=== PATIENT | male | born 1975 | race Caucasian/White ===

== ENCOUNTER → 2020-10-21 14:30 | Outpatient (CLI) | payer OTHER, SELFPAY ==
[2020-10-21] MEDS: COVID-19 VACC, Ad26(JANSSEN)/PF 0.5 ML IM (14:36)
== END ==
PROVIDERS: Visit Provider Internal Medicine
DX: Z23 Encounter for immunization (principal)
CPT/HCPCS: 0031A; 91303

== ENCOUNTER → 2021-02-07 09:49 | Outpatient (CLI) | payer OTHER, SELFPAY ==
[2021-02-07 10:26] LABS: Add Manual Diff / Slide Review NO; Basophils Absolute Auto 0 /uL (0-100); Basophils Percent Auto 0.5 % (0-2); Eosinophils Absolute Auto 200 /uL (0-450); Eosinophils Percent Auto 2.8 % (2-4); Hematocrit 44.7 % (41-53); Hemoglobin 15.3 g/dL (13.5-17.5); Lymphocytes Absolute Auto 2900 /uL (1100-4500); Lymphocytes Percent Auto 34.3 % (25-40); Mean Corpuscular HGB Conc 34.1 % (30-36); Mean Corpuscular Hemoglobin 31.1 PG (26-34); Mean Corpuscular Volume 91.3 fL (80-100); Monocytes Absolute Auto 600 /uL (0-900); Monocytes Percent Auto 7.8 % (3-14); Neutrophils Absolute Auto 4500 /uL (1500-7000); Neutrophils Percent Auto 54.6 % (50-75); Platelet Count 347 X10^3/uL (150-400); Red Cell Distribution Width 13.5 % (11.6-14.8); White Blood Cell Count 8.3 X10^3/uL (4.5-11.0)
[2021-02-07 10:31] LABS: Hemoglobin A1C% w Est Avg Glu 5.9 % (4.0-6.0)
[2021-02-07 10:58] LABS: Alanine Aminotransferase 29 IU/L (<50); Albumin 4.3 g/dL (3.5-5.0); Albumin Globulin Ratio 1.5 (1.0-2.8); Alkaline Phosphatase 58 U/L (38-126); Aspartate Aminotransferase 26 IU/L (17-59); BUN Creatinine Ratio 14.3 (6-22); Bilirubin Total 0.6 mg/dL (0.2-1.3); Blood Urea Nitrogen 12 mg/dL (9-20); Calcium 9.7 mg/dL (8.4-10.2); Carbon Dioxide 27 mmol/L (22-32); Chloride 107 mmol/L (98-107); Cholesterol 224 mg/dL (140-199); Estimated Glomerular Filt Rate > 60.0 mL/min (>60); Globulin 2.9 g/dL (1.7-4.1); Glucose 106 mg/dL (70-100); HDL Cholesterol 53 mg/dL (40-60); HEMOLYSIS < 15 (0-50); LDL Cholesterol Calculated 145 mg/dL (<100); Potassium 4.5 mmol/L (3.4-5.1); Sodium 139 mmol/L (137-145); Total Protein 7.2 g/dL (6.3-8.2); Triglycerides 129 mg/dL (35-150)
[2021-02-07 11:28] LABS: TSH w/ Reflex to FT4 2.36 uIU/mL (0.47-4.68)
[2021-02-07 16:25] LABS: Microalbumin Urine Random 1.6 mg/dL (0-1.6)
[2021-02-07 16:27] LABS: Creatinine Urine Random 297.6 mg/dL; Microalbumi Creatinin Ratio Ur 5.3 ug/mg CR (<30)
== END ==
PROVIDERS: PCP Family Medicine; Referring Provider Family Medicine; Visit Provider Family Medicine
DX: E11.9 Type 2 diabetes mellitus without complications (principal); E78.5 Hyperlipidemia, unspecified; I10 Essential (primary) hypertension
CPT/HCPCS: 36415; 80053; 80061; 82043; 82570; 83036; 84443; 85025

== ENCOUNTER → 2021-11-18 09:40 | Outpatient (CLI) | payer OTHER, SELFPAY ==
[2021-11-18 10:28] LABS: Cholesterol 219 mg/dL (140-199); HDL Cholesterol 47 mg/dL (40-60); LDL Cholesterol Calculated 144 mg/dL (<100); Triglycerides 140 mg/dL (35-150)
[2021-11-18 10:38] LABS: Hemoglobin A1C% w Est Avg Glu 6.2 % (4.0-6.0)
== END ==
PROVIDERS: PCP Family Medicine; Referring Provider Family Medicine; Visit Provider Family Medicine
DX: E11.9 Type 2 diabetes mellitus without complications (principal); E78.5 Hyperlipidemia, unspecified
CPT/HCPCS: 36415; 80061; 83036

== ENCOUNTER → 2023-11-01 09:35 | Outpatient (CLI) | payer OTHER, SELFPAY ==
[2023-11-01 10:24] LABS: Add Manual Diff / Slide Review NO; Basophils Absolute Auto 0 /uL (0-100); Basophils Percent Auto 0.5 % (0-2); Eosinophils Absolute Auto 200 /uL (0-450); Eosinophils Percent Auto 2.8 % (2-4); Hematocrit 47.4 % (41-53); Hemoglobin 16.2 g/dL (13.5-17.5); Lymphocytes Absolute Auto 2600 /uL (1100-4500); Lymphocytes Percent Auto 31.5 % (25-40); Mean Corpuscular HGB Conc 34.1 % (30-36); Mean Corpuscular Hemoglobin 31.4 PG (26-34); Mean Corpuscular Volume 92.2 fL (80-100); Monocytes Absolute Auto 900 /uL (0-900); Monocytes Percent Auto 10.4 % (3-14); Neutrophils Absolute Auto 4500 /uL (1500-7000); Neutrophils Percent Auto 54.8 % (50-75); Platelet Count 370 X10^3/uL (150-400); Red Blood Cell Count 5.14 X10^6/uL (4.5-5.9); Red Cell Distribution Width 13.5 % (11.6-14.8); White Blood Cell Count 8.3 X10^3/uL (4.5-11.0)
[2023-11-01 11:11] LABS: Alanine Aminotransferase 48 IU/L (<50); Albumin 4.9 g/dL (3.5-5.0); Albumin Globulin Ratio 1.6 (1.0-2.8); Alkaline Phosphatase 66 U/L (38-126); Aspartate Aminotransferase 37 IU/L (17-59); BUN Creatinine Ratio 11.8 (6-22); Bilirubin Total 0.8 mg/dL (0.2-1.3); Blood Urea Nitrogen 10 mg/dL (9-20); Calcium 9.8 mg/dL (8.4-10.2); Carbon Dioxide 29 mmol/L (22-32); Chloride 103 mmol/L (98-107); Cholesterol 194 mg/dL (140-199); Estimated Glomerular Filt Rate > 60 mL/min (>60); Glucose 100 mg/dL (70-100); HDL Cholesterol 41 mg/dL (40-60); HEMOLYSIS < 15 (0-50); LDL Cholesterol Calculated 128 mg/dL (<100); Potassium 4.4 mmol/L (3.4-5.1); Sodium 139 mmol/L (137-145); Total Protein 7.9 g/dL (6.3-8.2); Triglycerides 124 mg/dL (35-150)
[2023-11-01 11:15] LABS: Creatinine Urine Random 216.8 mg/dL
[2023-11-01 11:19] LABS: Microalbumi Creatinin Ratio Ur 38.2 ug/mg CR (<30); Microalbumin Urine Random 8.3 mg/dL (0-1.6)
[2023-11-01 13:14] LABS: Hemoglobin A1C% w Est Avg Glu 6.6 % (4.0-6.0)
[2023-11-02 04:55] LABS: Apolipoprotein B 113 mg/dL (<90)
== END ==
PROVIDERS: PCP Family Medicine; Referring Provider Family Medicine; Visit Provider Family Medicine
DX: E78.5 Hyperlipidemia, unspecified (principal); I10 Essential (primary) hypertension; E11.9 Type 2 diabetes mellitus without complications
CPT/HCPCS: 36415; 80053; 80061; 82043; 82172; 82570; 83036; 85025

== ENCOUNTER → 2023-11-06 15:16 | Outpatient (CLI) | payer OTHER, SELFPAY ==
--- NOTE | 2023-11-15 16:17 | DIAB.MNT ---
Initial Diabetes Medical Nutrition Therapy Assessment Name: Ervin Kelley (Bakari) Date: 11/06/23 Time: 345-445p Dx: Type II Diabetes Bakari presents for initial Dm visit. Reports PMH of DM x 6-7 years. FH of paternal T2DM. 2018 blurry vision, freq urination, and tingling in feet. BG was in the 300s with HgA1c of 13.3%. Saw an RD and started Metformin, resulted in reduced wt and improved Dm management. Then covid impacted weight gain. Recent hgA1c of 6.6%. Did have previous hgA1c just one month prior of 14% which does not seem accurate considering such a short time between with drastic change in result. Reports some excessive CHO intake with gas station food choices. Diet recall: 7-9am: fast food wise, egg, cheese biscuit with hashbrown 12-2p: protein drink x 30g PRO with kind bar 5-7p: healthy choice frozen dinner 30-45g CHO sn: pepperoni stick or nothing water unsure how much, decaf coffee x 3-5c, occasional diet beverage. Anthropometrics: Ht: 6'3 Wt: 312# reported Physical Activity: ADLs. Use to swim and walk for exercise. Wants to start bike. Time limited at this time while watching girlfriend's animals while she is on a trip. Self-Monitoring Blood Glucose: Reports FBG 80-110mg/dl, 100-140mg/dl after meals. Reports some excessive SMBG checks through the day, up to >5x per day. Diabetes Medications: 1000mg Metformin BID 5mg Tirzepatide (not taking) Pertinent Labs: HgA1c: 5.9% 01/2021 6.2% 11/2021 14% 09/2023 6.6% 10/2023 Past Medical History: (Last Reviewed 01/27/21 @ 14:59 by Harpreet Cabrera MD) Diabetes mellitus Hyperlipidemia Hypertension Peyronie disease Nutrition Rx: Carbohydrates: Meal:45g Snack:15-30g Nutrition Diagnosis: - Excessive Na intake r/t fastfood intake aeb diet recall - Inconsistent energy intake r/t no consistent timing of meals/snacks aeb diet recall Intervention: This participant was very receptive. Provided appropriate educational handouts. Discussed the following topics: Completed intake assessment. Discussed barriers to care. Plate Method, review impact of macronutrients on blood sugar, meal timing, carbohydrate counting, pairing macronutrients and spreading out carbohydrates for better blood glucose management Recommended servings for carbohydrates at meals and snacks Heart health nutrition Brainstormed appropriate meal/snack ideas based on food preferences Encouraged limiting SMBG to 1-2x per day Role of physical activity Created SMART goals for patient self-care and success. Goals: Make breakfast at home If needing to have snack on the go, choose protein Eat q 3-4 hours Have balanced HS snack Limit SMBG to 1-2x per day Follow-up: TOMI LUZ follow-up in 3-4 weeks Ann Arnold RDN, [facility] Certified Diabetes Care and [employer] P: [phone] Thank you for this referral
== END ==
PROVIDERS: PCP Family Medicine; Referring Provider Family Medicine
DX: E11.9 Type 2 diabetes mellitus without complications (principal); Z79.84 Long term (current) use of oral hypoglycemic drugs; Z71.3 Dietary counseling and surveillance
CPT/HCPCS: 97802

== ENCOUNTER → 2023-12-14 15:29 | Outpatient (CLI) | payer OTHER, SELFPAY ==
--- NOTE | 2023-12-27 14:47 | DIAB.MNTFU ---
Follow-up Diabetes Medical Nutrition Therapy Assessment Name: Ervin Kelley (Bakari) Date: 12/14/23 Time: 340-430p Dx: Type II Diabetes Bakari presents for DM follow-up. Reports watching rice portions. Forgets to eat, which he attributes to ADHD. Weighs himself q morning, 284# today. Issues accessing [employer], but feels he likely does not need it. Not on a statin despite elevated cholesterol due to reports h/o joint pain with statin 8-10 years ago. Interested in increasing resistance training at home. Feels he wants to wait to add exercise to see how far he can get with wt change with just nutrition alone. Diet Recall: B: breakfast sandwich and hashbrown with diet soda OR leftovers OR protein shake with kind bar L: protein shake and kind bar OR sandwich and celery D: chicken, few bites of rice, veggies No snacks recently and would like to continue current regimen. Anthropometrics: Ht: 6'3 Wt: 284# reported Weight history: 312# reported last visit. Personal goal of 250-260#. States he started at 338#. Physical Activity: No program. Self-Monitoring Blood Glucose: Checking less frequently, which was recommended since reported >5x per day checks. Now checking 1-2x per day. All in range. Date Pre Post Pre Post Pre Post HS 11/28 106 11/29 109 11/30 100 12/01 109 12/02 96 12/09 108 12/11 98 12/13 100 Diabetes Medications: 1000mg Metformin BID 5mg Tirzepatide (not taking) Pertinent Labs: HgA1c: 5.9% 01/2021 6.2% 11/2021 14% 09/2023 6.6% 10/2023 Past Medical History: (Last Reviewed 01/27/21 @ 14:59 by Harpreet Cabrera MD) Diabetes mellitus Hyperlipidemia Hypertension Peyronie disease Nutrition Rx: Carbohydrates: Meal:45g Snack:15-30g Nutrition Diagnosis: - Excessive Na intake r/t fastfood intake aeb diet recall- in progress - Inconsistent energy intake r/t no consistent timing of meals/snacks aeb diet recall- in progress Intervention: This participant was very receptive. Provided appropriate educational handouts. Discussed the following topics: Blood sugar review and trends. Portions and meal timing recs Eating out Physical activity plan and benefits of adding exercise Created SMART goals for patient self-care and success. Goals: Make breakfast at home- met If needing to have snack on the go, choose protein- met Eat q 3-4 hours- not met Have balanced HS snack- not met Limit SMBG to 1-2x per day - met Consider adding exercise to wt loss program- new Follow-up: TOMI LUZ follow-up 3 months per pt req. overall, BG are well managed and wt loss seems to be going well. He would like to check in after a few months. Encouraged him to call or message prn for questions or sooner follow-up needs. Ann Arnold RDN, [facility] Certified Diabetes Care and [employer] P: [phone] Thank you for this referral
== END ==
PROVIDERS: PCP Family Medicine; Referring Provider Family Medicine
DX: E11.9 Type 2 diabetes mellitus without complications (principal); E78.5 Hyperlipidemia, unspecified; I10 Essential (primary) hypertension; Z71.3 Dietary counseling and surveillance
CPT/HCPCS: 97803

== ENCOUNTER → 2024-02-20 09:01 | Outpatient (CLI) | payer OTHER, SELFPAY ==
[2024-02-20 10:40] LABS: Creatinine Urine Random 140.18 mg/dL
[2024-02-20 10:41] LABS: Hemoglobin A1C% w Est Avg Glu 5.9 % (4.0-6.0)
[2024-02-20 11:01] LABS: Cholesterol 204 mg/dL (140-199); HDL Cholesterol 51 mg/dL (40-60); LDL Cholesterol Calculated 130 mg/dL (<100); Triglycerides 113 mg/dL (35-150)
[2024-02-21 04:12] LABS: Apolipoprotein B 101 mg/dL (<90)
== END ==
PROVIDERS: PCP Family Medicine; Referring Provider Family Medicine; Visit Provider Family Medicine
DX: E78.5 Hyperlipidemia, unspecified (principal); I10 Essential (primary) hypertension; E11.9 Type 2 diabetes mellitus without complications
CPT/HCPCS: 36415; 80061; 82043; 82172; 82570; 83036

== ENCOUNTER → 2024-11-28 07:53 | Outpatient (CLI) | payer OTHER, SELFPAY ==
[2024-11-28 08:29] LABS: Hemoglobin A1C% w Est Avg Glu 6.1 % (4.0-6.0)
[2024-11-28 08:39] LABS: Alanine Aminotransferase 34 IU/L (<50); Albumin 4.2 g/dL (3.5-5.0); Albumin Globulin Ratio 1.5 (1.0-2.8); Alkaline Phosphatase 78 U/L (38-126); Aspartate Aminotransferase 25 IU/L (17-59); BUN Creatinine Ratio 17.1 (6-22); Bilirubin Total 0.6 mg/dL (0.2-1.3); Blood Urea Nitrogen 14 mg/dL (9-20); Calcium 9.5 mg/dL (8.4-10.2); Carbon Dioxide 23 mmol/L (22-32); Chloride 106 mmol/L (98-107); Cholesterol 202 mg/dL (140-199); Estimated Glomerular Filt Rate > 60 mL/min (>60); Globulin 2.8 g/dL (1.7-4.1); Glucose 129 mg/dL (70-99); HDL Cholesterol 40 mg/dL (40-60); HEMOLYSIS < 15 (0-50); LDL Cholesterol Calculated 136 mg/dL (<100); Potassium 4.5 mmol/L (3.4-5.1); Sodium 136 mmol/L (137-145); Triglycerides 128 mg/dL (35-150)
[2024-11-29 04:10] LABS: Apolipoprotein B 106 mg/dL (<90)
== END ==
PROVIDERS: PCP Family Medicine; Referring Provider Family Medicine; Visit Provider Family Medicine
DX: E78.5 Hyperlipidemia, unspecified (principal); I10 Essential (primary) hypertension; E11.9 Type 2 diabetes mellitus without complications
CPT/HCPCS: 36415; 80053; 80061; 82172; 83036; 83695

== ENCOUNTER → 2025-02-24 15:29 | Outpatient (CLI) | payer OTHER, SELFPAY ==
--- NOTE | 2025-02-24 15:30 | DI.RAD.S_ITS ---
PROCEDURE: XR WRIST RT 4V INDICATIONS: right wrist pain TECHNIQUE: 4 views of the wrist were acquired. COMPARISON: None. FINDINGS: Dwyn-uy-xosipkup degenerative changes of the right wrist with joint space narrowing and osteophytes at the radiocarpal, triscaphe, 1st carpal-metacarpal, 1st metacarpophalangeal joints. No radiographic evidence of displaced fracture, dislocation or high attenuation soft tissue foreign body. IMPRESSION: Degenerative changes. If symptoms persist or worsen, or there is high clinical suspicion of right wrist abnormality, MRI could be performed. Dictated by: Jason Dalton M.D. on 02/25/2025 at 15:24 Approved by: Jason Dalton M.D. on 02/25/2025 at 15:26
--- NOTE | 2025-02-24 15:30 | DI.RAD.S_ITS ---
PROCEDURE: XR KNEE RT 3V INDICATIONS: right knee pain TECHNIQUE: 3 views of the knee were acquired. COMPARISON: None. FINDINGS: Moderate degenerative changes of the right knee with joint space narrowing and osteophytes in the medial, lateral and patellofemoral compartments, Kellgren Rancho grade 3. Mild knee joint effusion. No radiographic evidence of displaced fracture, dislocation or high attenuation soft tissue foreign body. IMPRESSION: Degenerative changes. Mild effusion. If symptoms persist or worsen, or there is high clinical suspicion of right knee abnormality, MRI could be performed. Dictated by: Jason Dalton M.D. on 02/25/2025 at 15:26 Approved by: Jason Dalton M.D. on 02/25/2025 at 15:28
== END ==
LOC: RAD 15:30
PROVIDERS: PCP Family Medicine; Referring Provider Family Medicine; Visit Provider Family Medicine
DX: M25.461 Effusion, right knee (principal); M25.561 Pain in right knee; M25.531 Pain in right wrist; E78.5 Hyperlipidemia, unspecified; I10 Essential (primary) hypertension; E11.9 Type 2 diabetes mellitus without complications; F90.2 Attention-deficit hyperactivity disorder, combined type
CPT/HCPCS: 73110; 73562

== ENCOUNTER → 2025-05-28 09:13 | Outpatient (CLI) | payer OTHER, SELFPAY ==
[2025-05-28 09:35] LABS: Add Manual Diff / Slide Review NO; Hematocrit 44.6 % (41-53); Hemoglobin 15.4 g/dL (13.5-17.5); Lymphocytes Absolute Auto 2600 /uL (1100-4500); Mean Corpuscular HGB Conc 34.4 % (30-36); Mean Corpuscular Hemoglobin 31.6 PG (26-34); Mean Corpuscular Volume 91.7 fL (80-100); Platelet Count 387 X10^3/uL (150-400)
[2025-05-28 09:58] LABS: Hemoglobin A1C% w Est Avg Glu 6.3 % (4.0-6.0)
[2025-05-28 10:02] LABS: Alanine Aminotransferase 27 IU/L (<50); Albumin 4.6 g/dL (3.5-5.0); Albumin Globulin Ratio 1.6 (1.0-2.8); Alkaline Phosphatase 55 U/L (38-126); Blood Urea Nitrogen 15 mg/dL (9-20); Calcium 9.7 mg/dL (8.4-10.2); Carbon Dioxide 25 mmol/L (22-32); Chloride 104 mmol/L (98-107); Cholesterol 211 mg/dL (140-199); Estimated Glomerular Filt Rate > 60 mL/min (>60); Globulin 2.8 g/dL (1.7-4.1); Glucose 122 mg/dL (70-99); HDL Cholesterol 55 mg/dL (40-60); HEMOLYSIS < 15 (0-50); Potassium 4.5 mmol/L (3.4-5.1); Sodium 138 mmol/L (137-145); Total Protein 7.4 g/dL (6.3-8.2); Triglycerides 123 mg/dL (35-150)
== END ==
PROVIDERS: PCP Family Medicine; Referring Provider Family Medicine; Visit Provider Family Medicine
DX: E78.5 Hyperlipidemia, unspecified (principal); I10 Essential (primary) hypertension; E11.9 Type 2 diabetes mellitus without complications; F90.9 Attention-deficit hyperactivity disorder, unspecified type; F90.2 Attention-deficit hyperactivity disorder, combined type
CPT/HCPCS: 36415; 80053; 80061; 82172; 83036; 85025